=== PATIENT | male | born 1955 | race Caucasian/White ===

== ENCOUNTER → 2017-05-29 | Outpatient (CLI) | payer OTHER ==
--- NOTE | 2017-05-29 12:31 | P.STRESS ---
- Stress Test Note Stress Test Results/Findings: Exam Performed: stress test Exam Date: 05/29/17 Reason for Exam: HTN Height: 5 ft 10 in Weight: 92.079 kg Protocol: JOSEFA Stage: 2 Duration of Exercise: 4:20 Resting Heart Rate: 92 Resting Blood Pressure: 106/66 Maximum Achieved Heart Rate: 130 Maximum Achieved Blood Pressure: 193/70 85% PMHR: 136 100% PMHR: 160 METS: 6.2 Technologist Comment: Stress Test Results/Findings: Baseline EKG showed sinus rhythm with normal MO interval and QRS duration. EKG taken during and after the x-ray did not reveal any changes to good-sized ischemia. Patient did not express any chest pain. Final impression: #1. Negative stress test at about 81% of predicted heart rate #2. Patient did not express any chest pain. #3. Limited exercise capacity
--- NOTE | 2017-05-29 16:52 | EST ---
Stress Test Results/Findings: Exam Performed: stress test Exam Date: 05/29/17 Reason for Exam: HTN Height: 5 ft 10 in Weight: 92.079 kg Protocol: JOSEFA Stage: 2 Duration of Exercise: 4:20 Resting Heart Rate: 92 Resting Blood Pressure: 106/66 Maximum Achieved Heart Rate: 130 Maximum Achieved Blood Pressure: 193/70 85% PMHR: 136 100% PMHR: 160 METS: 6.2 Technologist Comment: Stress Test Results/Findings: Baseline EKG showed sinus rhythm with normal AL interval and QRS duration. EKG taken during and after the x-ray did not reveal any changes to good-sized ischemia. Patient did not express any chest pain. Final impression: #1. Negative stress test at about 81% of predicted heart rate #2. Patient did not express any chest pain. #3. Limited exercise capacity MTDD
--- NOTE | 2017-05-30 11:31 | ECHOF ---
Referral Reason:Hypertension I10 MEASUREMENTS -------- HEIGHT: 177.8 cm WEIGHT: 93.0 kg BP: RVIDd: 2.7 cm (< 3.3) IVSd: 1.0 cm (0.6 - 1.1) LVIDd: 4.4 cm (3.9 - 5.3) LVPWd: 1.1 cm (0.6 - 1.1) IVSs: 1.5 cm LVIDs: 3.2 cm LVPWs: 1.6 cm LA Diam: 3.0 cm (2.7 - 3.8) MV EXCURSION: 24.295 mm (> 18.000) MV EF SLOPE: 135 mm/s (70 - 150) EPSS: 2.0 cm MV E Yosef: 0.56 m/s MV DecT: 238 ms MV A Yosef: 0.79 m/s MV E/A Ratio: 0.71 RAP: 5.00 mmHg RVSP: 12.89 mmHg FINDINGS -------- Sinus rhythm. This was a technically adequate study. The left ventricular size is normal. Overall left ventricular systolic function is low-normal with, an EF between 50 - 55 %. The right ventricle is normal in size. The left atrial size is normal. The right atrial size is normal. The aortic valve is trileaflet, and appears structurally normal. No aortic stenosis or regurgitation. Mild mitral regurgitation is present. Mild tricuspid regurgitation present. There is no evidence of pulmonary hypertension. The right v entricular systolic pressure, as measured by Doppler, is 12.89mmHg. There is no pulmonic regurgitation present. The aortic root size is normal. There is no pericardial effusion. CONCLUSIONS -------- 1. The left ventricular size is normal. 2. Overall left ventricular systolic function is low-normal with, an EF between 50 - 55 %. 3. The right ventricle is normal in size. 4. The left atrial size is normal. 5. The aortic valve is trileaflet, and appears structurally normal. No aortic stenosis or regurgitati on. 6. Mild mitral regurgitation is present. 7. Mild tricuspid regurgitation present. 8. There is no evidence of pulmonary hypertension. 9. The right ventricular systolic pressure, as measured by Doppler, is 12.89mmHg. DOOR MANAGER: Elisa Gaines RDCS
== END | disposition home or self-care (01) ==
LOC: RADNMMAIN 11:11
PROVIDERS: ATTEND Family Medicine
DX: I10 Essential (primary) hypertension (principal); I08.1 Rheumatic disorders of both mitral and tricuspid valves
CPT/HCPCS: 93017; 93306

== ENCOUNTER 2018-04-30 10:09 | Day surgery (SDC) | payer BC, OTHER ==
[2018-04-26 14:26] VITALS: BMI 29.4
[~2018-04-30 10:09] MED LIST: LACTATED RINGERS 1,000 ML IV SCH; LIDOCAINE 1% 20 ML VIAL (10MG/ML) FOR IV START INTRADERMA PRN
[2018-04-30 10:39] VITALS: TEMP 97
[2018-04-30] MEDS ORDERED: LIDOCAINE 1% INJ 10MG/ML (20 ML MDV) ONE (11:35)
[2018-04-30] MEDS ORDERED: PROPOFOL 10 MG/ML 20 ML VIAL IV ONE (11:35)
[2018-04-30 12:30] VITALS: RESP 18
--- NOTE | 2018-04-30 12:32 | P.PCN ---
Date of Procedure: 04/30/18 Procedure(s) Performed: Procedure: Colonoscopy and polypectomy. Preoperative diagnosis: Rectal bleeding. Postoperative diagnosis: Multiple small polyps snared but no large polyps or cancer. Preparation: HalfLytely prep. Sedation: Was provided by anesthesia. Brief clinical history: The patient is a 62-year-old male who is scheduled for this evaluation because of couple episodes of rectal bleeding that occurs around 1 month ago. The patient had a prior colonoscopy around 5 years ago. This evaluation is to rule out neoplasia or other pathology. Procedure: With the patient on his left lateral decubitus and after informed consent and adequate sedation, the perianal area was inspected and it did not show any fissures or fistulas. There were no masses felt on digital rectal examination. The Olympus CFQ 160L video colonoscope was then inserted in the rectum in the usual fashion and advanced to the cecum. There were 3 small/ diminutive orifices noted, 1 in the right colon and 2 in the sigmoid that were snared and retrieved by suction but there were no large polyps or tumors. The mucosa appeared healthy. No obvious diverticular disease or bleeding. I retroflexed the endoscope in the rectum before the endoscope was withdrawn. Low -grade internal hemorrhoids were noted with no evidence of active bleeding at the time of this exam. The patient tolerated the procedure well. Plan: The patient was reassured. Discussed dietary measures and local care for hemorrhoids. He will follow-up with you as planned and I recommended repeat exam in 5 years.
[2018-04-30 13:14] VITALS: BP 147/87; PULSE 75
--- NOTE | 2018-05-02 13:15 | CDI ---
Outpatient Documentation Clarification Form Date: 05/02/18 CDS/Studio Data Analyst Name: Jina Ya Phone: If any questions, call Temitope Peck Typesetter Perforator Operator at [phone] Patient Name: Flex Morillo Admit Date: 04/30/18 Discharge Date: 04/30/18 ATTENTION: The [facility] Coding Staff appreciate your assistance in clarifying documentation. Please respond to the clarification below the line at the bottom and electronically sign. The [facility] Coding staff will review the response and follow-up if needed. Please note: Queries are made part of the Legal Health Record. If you have any questions, please contact the Typesetter Perforator Operator. Dear Dr. Gross, What is the cause of the rectal bleeding? Our coding resources state that when rectal bleeding is documented along with internal and/or external hemorrhoids, the physician must be queried to determine whether the rectal bleeding is secondary to the hemorrhoids, or incidental. Thank you for your kind consideration. MTDD
== END 2018-04-30 13:30 | disposition home or self-care (01) ==
LOC: ORWHC2ENDO 10:09
DX: D12.2 Benign neoplasm of ascending colon (principal); D12.5 Benign neoplasm of sigmoid colon; K62.5 Hemorrhage of anus and rectum; K64.8 Other hemorrhoids; J44.9 Chronic obstructive pulmonary disease, unspecified; E78.5 Hyperlipidemia, unspecified; N40.0 Benign prostatic hyperplasia without lower urinary tract symptoms; Z85.828 Personal history of other malignant neoplasm of skin; Z79.51 Long term (current) use of inhaled steroids; Z79.899 Other long term (current) drug therapy
CPT/HCPCS: 88305; 45385; J2001; J2704

== ENCOUNTER → 2018-10-29 | Outpatient (CLI) | payer BC ==
--- NOTE | 2018-10-30 07:24 | US ---
EXAMINATION TYPE: US thyroid st tissue head/neck DATE OF EXAM: 10/29/2018 COMPARISON: NONE CLINICAL HISTORY: E04.9 Enlarged Thyroid. Neck swelling GLAND SIZE: Right Lobe: 4.2 x 1.9 x 1.5 cm Overall Parenchyma: heterogenous Left Lobe: 4.0 x 1.8 x 1.3 cm Overall Parenchyma: heterogeneous Isthmus Thickness: 0.4 cm NODULES RIGHT: # of nodules measured on right: 0 LEFT: # of nodules measured on left: 0 ISTHMUS: # of nodules measured in the isthmus: 0 Bilateral neck scanned, no evidence of lymphadenopathy. IMPRESSION: No distinct abnormality appreciated.
== END | disposition home or self-care (01) ==
LOC: RADUSWWP 15:50
PROVIDERS: ATTEND Family Medicine
DX: E04.9 Nontoxic goiter, unspecified (principal)
CPT/HCPCS: 76536

== ENCOUNTER 2022-07-10 17:03 | Inpatient (IN) | payer BC, MEDICARE ==
[2022-07-10 17:15] LABS: Glucose,Whole Blood 154 mg/dL (70-110)
--- NOTE | 2022-07-10 17:32 | ED ---
Neuro HPI - General Chief Complaint: Neuro Symptoms/Deficit Stated Complaint: possible stroke Time Seen by Provider: 07/10/22 17:21 Source: patient, EMS Mode of arrival: EMS Limitations: altered mental status - History of Present Illness Is the patient presenting with stroke symptoms?: Yes Last Known Well Date: 07/10/22 Last Known Well Time: 16:00 -: hour(s) Initial Comments: This patient is 67-year-old man with history of COPD who presents with left- sided face and arm weakness. The patient reportedly developed the symptoms since he had been smoking marijuana with a friend around 4 PM. Patient reported having a similar episode about 5 days ago that resolved. Patient denies headache, change in sensation. Location: left face, left arm, left leg History of same: Yes Place: home Severity: moderate Quality: weak, numb Improves With: none Worsens With: none On Anticoagulants: No Context: sudden onset Associated Symptoms: shortness of breath Treatments Prior to Arrival: none - Related Data Home Medications: Home Medications Medication Instructions Recorded Confirmed Albuterol Inhaler [Ventolin Hfa 2 puff INHALATION RT-Q6H PRN 04/26/18 07/10/22 Inhaler] Budesonide [Pulmicort] 0.5 mg INHALATION RT-BID 04/26/18 07/10/22 Tamsulosin HCl [Flomax] 0.4 mg PO BID 04/26/18 07/10/22 Ipratropium-Albuterol Nebulize 3 ml INHALATION RT-QID PRN 07/10/22 07/10/22 [Duoneb 0.5 mg-3 mg/3 ml Soln] Montelukast Sodium [Singulair] 10 mg PO HS 07/10/22 07/10/22 Allergies/Adverse Reactions: Allergies Allergy/AdvReac Type Severity Reaction Status Date / Time No Known Allergies Allergy Verified 07/10/22 21:41 Review of Systems ROS Statement: Those systems with pertinent positive or pertinent negative responses have been documented in the HPI. ROS Other: All systems not noted in ROS Statement are negative. Constitutional: Denies: fever, chills Eyes: Denies: vision change Respiratory: Reports: dyspnea, wheezes. Denies: hemoptysis Cardiovascular: Denies: chest pain, edema, syncope Gastrointestinal: Denies: abdominal pain, vomiting, diarrhea Genitourinary: Denies: dysuria, hematuria Musculoskeletal: Denies: back pain Skin: Denies: rash Neurological: Reports: as per HPI, weakness (Left-sided). Denies: headache, numbness Hematological/Lymphatic: Denies: easy bleeding General Exam Limitations: no limitations General appearance: alert, in no apparent distress Head exam: Present: atraumatic, normocephalic Eye exam: Present: normal appearance, PERRL, EOMI. Absent: scleral icterus, conjunctival injection Neck exam: Present: normal inspection, full ROM Respiratory exam: Present: wheezes, prolonged expiratory. Absent: respiratory distress, rales, rhonchi, stridor, chest wall tenderness, accessory muscle use Cardiovascular Exam: Present: regular rate, normal rhythm, normal heart sounds. Absent: systolic murmur, diastolic murmur, rubs, gallop GI/Abdominal exam: Present: soft. Absent: distended, tenderness, guarding, rebound, rigid, mass Extremities exam: Present: normal inspection, normal capillary refill. Absent: pedal edema, calf tenderness Back exam: Present: normal inspection. Absent: CVA tenderness (R), CVA tenderness (L) Neurological exam: Present: alert, oriented X3, motor sensory deficit. Absent: CN II-XII intact Expanded Neurological exam: Present: protecting the airway Patient oriented to: Present: person, place, time Speech: Present: fluid speech Cranial nerves: EOM's Intact: Normal, Gag Reflex: Normal, Tongue Deviation: Norm al Cerebellar function: Finger to Nose: Normal Sensory exam: Upper Extremity Light Touch: Normal Motor strength exam: RUE: 5, LUE: 4, RLE: 5, LLE: 4 Eye Response: (4) open spontaneously Motor Response: (6) obeys commands Verbal Response: (5) oriented Skin exam: Present: warm, dry, intact, normal color. Absent: rash Stroke MDM - Lab Data Result diagrams: 07/10/22 17:16 07/10/22 17:16 Lab Results 07/10/22 07/10/22 07/10/22 Range/Units 17:14 17:16 17:16 WBC 7.9 (3.8-10.6) k/uL RBC 5.22 (4.30-5.90) m/uL Hgb 15.3 (13.0-17.5) gm/dL Hct 47.4 (39.0-53.0) % MCV 90.8 (80.0-100.0) fL MCH 29.3 (25.0-35.0) pg MCHC 32.2 (31.0-37.0) g/dL RDW 13.0 (11.5-15.5) % Plt Count 230 (150-450) k/uL MPV 8.6 Neutrophils % 79 % Lymphocytes % 14 % Monocytes % 4 % Eosinophils % 1 % Basophils % 1 % Neutrophils # 6.3 (1.3-7.7) k/uL Lymphocytes # 1.1 (1.0-4.8) k/uL Monocytes # 0.3 (0-1.0) k/uL Eosinophils # 0.1 (0-0.7) k/uL Basophils # 0.0 (0-0.2) k/uL Hypochromasia Slight PT 9.9 (9.0-12.0) sec INR 0.9 (<1.2) APTT 23.6 (22.0-30.0) sec VBG pH (7.31-7.41) VBG pCO2 (37-51) mmHg VBG HCO3 (24-28) mmol/L Sodium (137-145) mmol/L Potassium (3.5-5.1) mmol/L Chloride (98-107) mmol/L Carbon Dioxide (22-30) mmol/L Anion Gap mmol/L BUN (9-20) mg/dL Creatinine (0.66-1.25) mg/dL Est GFR (CKD-EPI)AfAm (>60 ml/min/1.73 sqM) Est GFR (CKD-EPI)NonAf (>60 ml/min/1.73 sqM) Glucose (74-99) mg/dL POC Glucose (mg/dL) 154 H (70-110) mg/dL POC Glu Twisting Frame Changer ID Ofelia Zhou Estimated Ave Glu mg/dL Hemoglobin A1c (0.0-6.0) % Calcium (8.4-10.2) mg/dL Total Bilirubin (0.2-1.3) mg/dL AST (17-59) U/L ALT (4-49) U/L Alkaline Phosphatase (38-126) U/L Troponin I (0.000-0.034) ng/mL Total Protein (6.3-8.2) g/dL Albumin (3.5-5.0) g/dL 07/10/22 07/10/22 07/10/22 Range/Units 17:16 17:16 17:16 WBC (3.8-10.6) k/uL RBC (4.30-5.90) m/uL Hgb (13.0-17.5) gm/dL Hct (39.0-53.0) % MCV (80.0-100.0) fL MCH (25.0-35.0) pg MCHC (31.0-37.0) g/dL RDW (11.5-15.5) % Plt Count (150-450) k/uL MPV Neutrophils % % Lymphocytes % % Monocytes % % Eosinophils % % Basophils % % Neutrophils # (1.3-7.7) k/uL Lymphocytes # (1.0-4.8) k/uL Monocytes # (0-1.0) k/uL Eosinophils # (0-0.7) k/uL Basophils # (0-0.2) k/uL Hypochromasia PT (9.0-12.0) sec INR (<1.2) APTT (22.0-30.0) sec VBG pH (7.31-7.41) VBG pCO2 (37-51) mmHg VBG HCO3 (24-28) mmol/L Sodium 141 (137-145) mmol/L Potassium 4.4 (3.5-5.1) mmol/L Chloride 107 (98-107) mmol/L Carbon Dioxide 26 (22-30) mmol/L Anion Gap 8 mmol/L BUN 16 (9-20) mg/dL Creatinine 1.08 (0.66-1.25) mg/dL Est GFR (CKD-EPI)AfAm 83 (>60 ml/min/1.73 sqM) Est GFR (CKD-EPI)NonAf 72 (>60 ml/min/1.73 sqM) Glucose 168 H (74-99) mg/dL POC Glucose (mg/dL) (70-110) mg/dL POC Glu Twisting Frame Changer ID Estimated Ave Glu mg/dL 120 Hemoglobin A1c 5.8 (0.0-6.0) % Calcium 9.0 (8.4-10.2) mg/dL Total Bilirubin 0.4 (0.2-1.3) mg/dL AST 21 (17-59) U/L ALT 18 (4-49) U/L Alkaline Phosphatase 133 H (38-126) U/L Troponin I <0.012 (0.000-0.034) ng/mL Total Protein 6.4 (6.3-8.2) g/dL Albumin 3.8 (3.5-5.0) g/dL 07/10/22 Range/Units 20:25 WBC (3.8-10.6) k/uL RBC (4.30-5.90) m/uL Hgb (13.0-17.5) gm/dL Hct (39.0-53.0) % MCV (80.0-100.0) fL MCH (25.0-35.0) pg MCHC (31.0-37.0) g/dL RDW (11.5-15.5) % Plt Count (150-450) k/uL MPV Neutrophils % % Lymphocytes % % Monocytes % % Eosinophils % % Basophils % % Neutrophils # (1.3-7.7) k/uL Lymphocytes # (1.0-4.8) k/uL Monocytes # (0-1.0) k/uL Eosinophils # (0-0.7) k/uL Basophils # (0-0.2) k/uL Hypochromasia PT (9.0-12.0) sec INR (<1.2) APTT (22.0-30.0) sec VBG pH 7.38 (7.31-7.41) VBG pCO2 46 (37-51) mmHg VBG HCO3 27 (24-28) mmol/L Sodium (137-145) mmol/L Potassium (3.5-5.1) mmol/L Chloride (98-107) mmol/L Carbon Dioxide (22-30) mmol/L Anion Gap mmol/L BUN (9-20) mg/dL Creatinine (0.66-1.25) mg/dL Est GFR (CKD-EPI)AfAm (>60 ml/min/1.73 sqM) Est GFR (CKD-EPI)NonAf (>60 ml/min/1.73 sqM) Glucose (74-99) mg/dL POC Glucose (mg/dL) (70-110) mg/dL POC Glu Twisting Frame Changer ID Estimated Ave Glu mg/dL Hemoglobin A1c (0.0-6.0) % Calcium (8.4-10.2) mg/dL Total Bilirubin (0.2-1.3) mg/dL AST (17-59) U/L ALT (4-49) U/L Alkaline Phosphatase (38-126) U/L Troponin I (0.000-0.034) ng/mL Total Protein (6.3-8.2) g/dL Albumin (3.5-5.0) g/dL - NIH Stroke Scale 1a. Level of Consciousness: (0) alert 1b. LOC Questions: (0) answers correctly 1c. LOC Commands: (0) performs tasks correctly 2. Best Gaze: (0) normal 3. Visual: (0) no visual loss 4. Facial Palsy: (1) minor paralysis 5a. Motor Arm Left: (1) drift 5b. Motor Arm Right: (0) no drift 6a. Motor Leg Left: (1) drift 6b. Motor Leg Right: (0) no drift 7. Limb Ataxia: (0) absent 8. Sensory: (0) normal 9. Best Language: (0) no aphasia 10. Dysarthria: (0) normal 11. Extinction/Inattention: (0) no abnormality - Medical Decision Making Patient is 67-year-old man here for left-sided weakness face arm and leg. Case is discussed with stroke team. Patient worked up not revealing acute stroke. 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 The patient did have marked improvement of his symptoms and therefore TPA is not given. Patient be admitted to have further neurology care and vascular surgery consult. Was pt. sent in by a medical professional or institution? @ -no Did you speak to anyone other than the patient for history? @ -[EMS, Did you review nursing and triage notes? @ -[agree Were old charts reviewed? @ -[no] Differential Diagnosis? @ -Differential Weakness: Hypoglycemia, shock, sepsis, hyponatremia, anemia, infection, AK, ETOH, adverse medicine reaction, overdose, stroke, this is not meant to be an all-inclusive list. EKG interpreted by me (3pts min.)? @ -[See chart X-rays interpreted by me (1pt min.)? @ -[See chart CT interpreted by me (1pt min.)? @ -[CT brain interpreted by myself as showing acute hemorrhagic stroke] U/S interpreted by me (1pt. min.)? @ -[none] What testing was considered but not performed? (CT, X-rays, U/S, labs)? Why? @ [CT, X-rays, U/S, labs? Why?] What meds were considered but not given? Why? @ -[TPA administration considered in conjunction with stroke team, but patient had rapid improvement in symptoms Did you discuss the management of the patient with other professionals? @ -[Stroke team physician and admitting physician Did you reconcile home meds? @ -[Yes Was smoking cessation discussed for >3mins.? @ -[Yes Was critical care preformed (if so, how long)? @ -[Yes35 minutes Were there social determinants of health that impacted care today? How? (Homelessness, low income, unemployed, alcoholism, drug addiction, tr ansportation, low edu. Level, literacy, decrease access to med. care, [facility], rehab)? @ -[no Was there de-escalation of care discussed even if they declined? (Discuss DNR or withdrawal of care, Hospice)? @ -[no What co-morbidities impacted this encounter? (DM, HTN, Smoking, COPD, CAD, Cancer, CVA, Hep., AIDS, mental health diagnosis, sleep apnea, morbid obesity)? @ -[COPD Was patient admitted / discharged? @ -[Admitted Undiagnosed new problem with uncertain prognosis? @ -[none] Drug Therapy requiring intensive monitoring for toxicity (Heparin, Nitro, Insulin, Cardizem)? @ -[none] Were any procedures done? @ -[none] Diagnosis/symptom? @ -[1.Acute ischemic stroke versus TIA 2. COPD exacerbation Acute, or Chronic, or Acute on Chronic? @ -[Both acute conditions Uncomplicated (without systemic symptoms) or Complicated (systemic symptoms)? @ -[Uncomplicated Side effects of treatment? @ -[none] Exacerbation, Progression, or Severe Exacerbation] @ -[Exacerbation Poses a threat to life or bodily function? @ -[Yes - Radiology Data Radiology results: image reviewed Chest x-ray interpreted by myself as not showing acute infiltrate - EKG Data -: EKG Interpreted by Me EKG shows normal: sinus rhythm (Rate 86 bpm), axis (Normal), intervals (Normal), QRS complexes (Incomplete right bundle branch block), ST-T waves (Normal) Rate: normal (Rate 86 bpm) Past Medical History Past Medical History: Cancer, COPD, Hyperlipidemia Additional Past Medical History / Comment(s): Skin CA History of Any Multi-Drug Resistant Organisms: None Reported Past Surgical History: Hernia Repair, Orthopedic Surgery Additional Past Surgical History / Comment(s): Ankle surgery; 2 fingertips removed r/t accident Past Anesthesia/Blood Transfusion Reactions: No Reported Reaction Past Psychological History: No Psychological Hx Reported Smoking Status: Current every day smoker Past Alcohol Use History: None Reported Past Drug Use History: Marijuana - Past Family History Mother Family Medical History: No Reported History Course Vital Signs 07/10/22 07/10/22 07/10/22 17:06 17:15 17:45 Temperature 97.4 F L Pulse Rate 87 88 88 Pulse Rate [ Pulse Oximetery ] Respiratory 20 14 13 Rate Blood Pressure 119/92 112/65 128/78 Blood Pressure [Left Arm] O2 Sat by Pulse 96 96 96 Oximetry Fraction of Inspired Oxygen (FIO2) 07/10/22 07/10/22 07/10/22 19:12 19:52 20:05 Temperature Pulse Rate 84 90 86 Pulse Rate [ Pulse Oximetery ] Respiratory 13 Rate Blood Pressure 127/67 Blood Pressure [Left Arm] O2 Sat by Pulse 99 Oximetry Fraction of Inspired Oxygen (FIO2) 07/10/22 07/10/22 07/10/22 21:31 23:41 23:42 Temperature Pulse Rate 87 105 H 100 Pulse Rate [ Pulse Oximetery ] Respiratory 20 26 H Rate Blood Pressure 139/80 Blood Pressure [Left Arm] O2 Sat by Pulse 97 97 98 Oximetry Fraction of Inspired Oxygen (FIO2) 07/10/22 07/11/22 07/11/22 23:50 00:01 01:11 Temperature Pulse Rate 102 H 95 80 Pulse Rate [ Pulse Oximetery ] Respiratory 26 H 16 Rate Blood Pressure 133/93 131/71 Blood Pressure [Left Arm] O2 Sat by Pulse 95 94 L Oximetry Fraction of 35 Inspired Oxygen (FIO2) 07/11/22 07/11/22 07/11/22 02:56 03:10 03:53 Temperature Pulse Rate 81 75 78 Pulse Rate [ Pulse Oximetery ] Respiratory 18 Rate Blood Pressure 134/67 Blood Pressure [Left Arm] O2 Sat by Pulse 99 Oximetry Fraction of 35 Inspired Oxygen (FIO2) 07/11/22 07/11/22 07/11/22 06:01 07:00 07:04 Temperature Pulse Rate 77 72 73 Pulse Rate [ Pulse Oximetery ] Respiratory 18 18 18 Rate Blood Pressure 163/85 145/84 Blood Pressure [Left Arm] O2 Sat by Pulse 97 99 Oximetry Fraction of 35 Inspired Oxygen (FIO2) 07/11/22 07/11/22 07/11/22 07:15 08:00 11:33 Temperature 97.3 F L Pulse Rate 73 88 Pulse Rate [ 100 Pulse Oximetery ] Respiratory 18 20 22 Rate Blood Pressure Blood Pressure 115/98 [Left Arm] O2 Sat by Pulse 98 Oximetry Fraction of Inspired Oxygen (FIO2) - Reevaluation(s) Reevaluation #1: 07/10/22 17:43 Case is discussed with , his recommendation is that TPA not be given at this time, pending the CT result. He does recommend IV fluids, aspirin, and will discuss again following CT. Disposition Clinical Impression: Transient cerebral ischemia, COPD with exacerbation Disposition: ADMITTED IP TO THIS [facility] Condition: Undetermined Is patient prescribed a controlled substance at d/c from ED?: No
[2022-07-10] MEDS ORDERED: SODIUM CHLORIDE 0.9% 1,000 ML IV ONE (17:42)
--- NOTE | 2022-07-10 17:52 | CT ---
EXAMINATION TYPE: CT brain wo con for TPA DATE OF EXAM: 07/10/2022 COMPARISON: None HISTORY: code altephase Neuro deficit, acute, stroke suspected CT DLP: 1162.6 mGycm Automated exposure control for dose reduction was used. Images obtained without contrast. Ventricles are normal size. There is no mass effect or midline shift. No sign of intracranial hemorrh age. Calvarium is intact. There is normal aeration of the mastoid sinuses. IMPRESSION: Negative unenhanced head CT scan.
[2022-07-10 17:53] LABS: Basophils % (A) 1 %; Eosinophils # (A) 0.1 k/uL (0-0.7); Eosinophils % (A) 1 %; HCT 47.4 % (39.0-53.0); HGB 15.3 gm/dL (13.0-17.5); Hypochromasia Slight; Lymphocytes # (A) 1.1 k/uL (1.0-4.8); Lymphocytes % (A) 14 %; MCH 29.3 pg (25.0-35.0); MCHC 32.2 g/dL (31.0-37.0); MCV 90.8 fL (80.0-100.0); Mean Platelet Volume 8.6; Monocytes # (A) 0.3 k/uL (0-1.0); Monocytes % (A) 4 %; Neutrophils # (A) 6.3 k/uL (1.3-7.7); Neutrophils % (A) 79 %; Platelet Count 230 k/uL (150-450); RBC 5.22 m/uL (4.30-5.90); WBC 7.9 k/uL (3.8-10.6)
[2022-07-10 18:09] LABS: INR 0.9 (<1.2); Partial Thromboplastin Time 23.6 sec (22.0-30.0); Prothrombin Time 9.9 sec (9.0-12.0)
[2022-07-10 18:15] LABS: Albumin 3.8 g/dL (3.5-5.0); Potassium 4.4 mmol/L (3.5-5.1); Total Bilirubin 0.4 mg/dL (0.2-1.3); Total Protein 6.4 g/dL (6.3-8.2)
--- NOTE | 2022-07-10 18:21 | CT ---
EXAMINATION TYPE: CT angio head neck DATE OF EXAM: 07/10/2022 COMPARISON: None HISTORY: Neuro deficit, acute, stroke suspected CT DLP: 652 mGycm Automated exposure control for dose reduction was used. CONTRAST: Performed with IV Contrast, patient injected with 65 mL of Isovue 370. Images obtained from the aortic arch to the vertex of the brain with the IV contrast. There are Three -D postprocessed images. There is atheromatous change in the aortic arch. No aneurysm or dissection. There is arterial flow in both subclavian arteries. There is arterial flow in the common internal and external carotid arterie s bilaterally. There is significant plaque at the right carotid artery bifurcation and stenosis of th e origin of the right internal carotid artery 80%. There is thrombosis of the entire left internal ca rotid artery. There is arterial flow in both vertebral arteries. There is arterial flow in the verteb robasilar artery system. No evidence of carotid or vertebral artery aneurysm. There is arterial flow in the anterior middle and posterior cerebral arteries bilaterally. The left m iddle cerebral artery and left anterior cerebral artery appear to fill entirely through the anterior communicating artery. There is no definite flow in the left posterior communicating artery. No eviden ce of intracranial aneurysm or neovascularity. No mass effect. There is normal enhancement of the hudson ous sinuses. No stenosis seen of the anterior middle and posterior cerebral arteries. 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 There is approximate 80% stenosis of the origin of the right internal carotid artery.
--- NOTE | 2022-07-10 18:23 | XR ---
EXAMINATION TYPE: XR chest 2V DATE OF EXAM: 07/10/2022 COMPARISON: NONE HISTORY: Altered mental status TECHNIQUE: 2 views FINDINGS: Heart and mediastinum are normal. Lungs are clear. Diaphragm is normal. Bony thorax is inta ct. There are chest leads. IMPRESSION: Normal chest.
[2022-07-10] MEDS ORDERED: IPRATROPIUM-ALBUTEROL 3 ML NEB INHALATION STA (19:32)
[2022-07-10] MEDS ORDERED: ASPIRIN 81 MG PO STA (20:06)
[2022-07-10] MEDS ORDERED: TICAGRELOR 90 MG TAB PO STA (20:48)
[2022-07-10] MEDS: FAMOTIDINE 20 MG/2 ML VIAL IV SCH (21:05)
[2022-07-10 21:07] LABS: VBG PH 7.38 (7.31-7.41)
[2022-07-10] MEDS ORDERED: ALBUTEROL NEBULIZED 2.5 MG/3 ML INHALATION PRN (22:50)
[2022-07-10] MEDS: NICOTINE 14MG/24HR PATCH TRANSDERM SCH (22:54)
[2022-07-10] MEDS: IPRATROPIUM-ALBUTEROL 3 ML NEB INHALATION PRN (23:41)
[2022-07-11] MEDS ORDERED: NITROGLYCERIN OINT 1 INCH/GM PACKET TOPICAL STA (00:02)
[2022-07-11] MEDS ORDERED: MORPHINE SULFATE 4 MG/ML SYRINGE IV STA (00:02)
[2022-07-11] MEDS ORDERED: predniSONE 20 MG TAB PO SCH (01:30)
[2022-07-11] MEDS: IPRATROPIUM-ALBUTEROL 3 ML NEB INHALATION PRN ×3 (07:03→15:53)
[2022-07-11] MEDS ORDERED: BUDESONIDE 0.5 MG/2 ML NEBU INHALATION SCH (08:00)
[2022-07-11] MEDS: FAMOTIDINE 20 MG/2 ML VIAL IV SCH (08:55)
[2022-07-11] MEDS: NICOTINE 14MG/24HR PATCH TRANSDERM SCH (08:56)
[2022-07-11] MEDS ORDERED: ATORVASTATIN 40 MG TAB PO SCH (09:00)
[2022-07-11] MEDS ORDERED: TAMSULOSIN 0.4 MG CAP.ER.24H PO SCH (09:00)
[2022-07-11] MEDS ORDERED: ASPIRIN 81 MG PO SCH (09:00)
[2022-07-11] MEDS ORDERED: TICAGRELOR 90 MG TAB PO SCH ×2 (09:00→21:00)
[2022-07-11 11:42] VITALS: RESP 18
[2022-07-11 11:50] LABS: Chol/HDL Ratio 5.66 Ratio; LDL Cholesterol,Calculated 154.6 mg/dL (0.0-131.0)
--- NOTE | 2022-07-11 12:07 | P.GSCN ---
History of Present Illness Consult date: 07/11/22 Reason for Consult: Under 1 called left carotid occlusion, right ICA stenosis Carotid stenosis Requesting physician: Mk Dolan History of present illness: This a 67-year-old male who presented to the emergency department yesterday evening with complaints of left-sided facial numbness, drooping as well as left upper extremity weakness. His past medical history includes COPD, he is a current every day smoker, and hyperlipidemia.Patient states he was at a friend's house and they were smoking marijuana and he started feeling like his whole body was weak/numb. He states he had similar episode a week ago when he was at his friend's house at that time states that symptoms seemed to resolve that he went home and felt better. Yesterday however patient became very nervous and was concerned for stroke so he came to the emergency department. He had a CT of the brain that showed no acute changes. He also underwent a CT angiogram head and neck there is thrombosis of the entire left internal carotid artery. There is approximate 80% stenosis of the origin of the right internal carotid artery. Patient seen and examined in the ICU. He is alert and oriented 3. He denies any focal deficits at this time. He denies any shortness of breath, chest pain, abdominal pain, nausea or vomiting. Denies any recent fevers or chills. He denied any visual changes or speech disturbances during his episode yesterday. He was started on aspirin, atorvastatin 40 mg daily and Brilinta 90 mg daily. Review of Systems A 14 point review systems was completed all pertinent positives and negatives as stated in the HPI. Past Medical History Past Medical History: Cancer, COPD, Hyperlipidemia Additional Past Medical History / Comment(s): Skin CA History of Any Multi-Drug Resistant Organisms: None Reported Past Surgical History: Hernia Repair, Orthopedic Surgery Additional Past Surgical History / Comment(s): Ankle surgery; 2 fingertips removed r/t accident Past Anesthesia/Blood Transfusion Reactions: No Reported Reaction Past Psychological History: No Psychological Hx Reported Smoking Status: Current every day smoker Past Alcohol Use History: None Reported Past Drug Use History: Marijuana - Past Family History Mother Family Medical History: No Reported History Medications and Allergies Home Medications Medication Instructions Recorded Confirmed Type Albuterol Inhaler [Ventolin Hfa 2 puff INHALATION RT-Q6H PRN 04/26/18 07/10/22 History Inhaler] Budesonide [Pulmicort] 0.5 mg INHALATION RT-BID 04/26/18 07/10/22 History Tamsulosin HCl [Flomax] 0.4 mg PO BID 04/26/18 07/10/22 History Ipratropium-Albuterol Nebulize 3 ml INHALATION RT-QID PRN 07/10/22 07/10/22 History [Duoneb 0.5 mg-3 mg/3 ml Soln] Montelukast Sodium [Singulair] 10 mg PO HS 07/10/22 07/10/22 History Allergies Allergy/AdvReac Type Severity Reaction Status Date / Time No Known Allergies Allergy Verified 07/10/22 21:41 Surgical - Exam Vital Signs Temp Pulse Resp BP Pulse Ox 97.4 F L 87 20 119/92 96 07/10/22 17:06 07/10/22 17:06 07/10/22 17:06 07/10/22 17:06 07/10/22 17:06 General appearance: The patient is alert, oriented, appears in no acute distress. HET: Head is normocephalic and atraumatic. Pupils are equal and reactive. Neck: Supple without lymphadenopathy. Trachea midline. Heart: Regular. Lungs: Equal expansion, normal respiratory effort. Abdomen: Soft, nontender, nondistended. Extremities: Normal skin color and turgor. No cyanosis, rash, ulceration, clubbing, or edema. Palpable bilateral dorsalis pedis pulses, PT pulses weak Neurological: Alert and oriented x3. No focal deficits. Strength and sensation are grossly intact. Results - Labs 07/10/22 17:16 07/10/22 17:16 Abnormal Lab Results - Last 24 Hours (Table) 07/10/22 07/10/22 Range/Units 17:14 17:16 Glucose 168 H (74-99) mg/dL POC Glucose (mg/dL) 154 H (70-110) mg/dL Alkaline Phosphatase 133 H (38-126) U/L Diabetes panel 07/10/22 Range/Units 17:16 Sodium 141 (137-145) mmol/L Potassium 4.4 (3.5-5.1) mmol/L Chloride 107 (98-107) mmol/L Carbon Dioxide 26 (22-30) mmol/L BUN 16 (9-20) mg/dL Creatinine 1.08 (0.66-1.25) mg/dL Glucose 168 H (74-99) mg/dL Calcium 9.0 (8.4-10.2) mg/dL AST 21 (17-59) U/L ALT 18 (4-49) U/L Alkaline Phosphatase 133 H (38-126) U/L Total Protein 6.4 (6.3-8.2) g/dL Albumin 3.8 (3.5-5.0) g/dL Calcium panel 07/10/22 Range/Units 17:16 Calcium 9.0 (8.4-10.2) mg/dL Albumin 3.8 (3.5-5.0) g/dL Pituitary panel 07/10/22 Range/Units 17:16 Sodium 141 (137-145) mmol/L Potassium 4.4 (3.5-5.1) mmol/L Chloride 107 (98-107) mmol/L Carbon Dioxide 26 (22-30) mmol/L BUN 16 (9-20) mg/dL Creatinine 1.08 (0.66-1.25) mg/dL Glucose 168 H (74-99) mg/dL Calcium 9.0 (8.4-10.2) mg/dL Adrenal panel 07/10/22 Range/Units 17:16 Sodium 141 (137-145) mmol/L Potassium 4.4 (3.5-5.1) mmol/L Chloride 107 (98-107) mmol/L Carbon Dioxide 26 (22-30) mmol/L BUN 16 (9-20) mg/dL Creatinine 1.08 (0.66-1.25) mg/dL Glucose 168 H (74-99) mg/dL Calcium 9.0 (8.4-10.2) mg/dL Total Bilirubin 0.4 (0.2-1.3) mg/dL AST 21 (17-59) U/L ALT 18 (4-49) U/L Alkaline Phosphatase 133 H (38-126) U/L Total Protein 6.4 (6.3-8.2) g/dL Albumin 3.8 (3.5-5.0) g/dL Assessment and Plan Assessment: 1. Severe Right internal carotid artery stenosis, 80% per CT angiogram 2. Left ICA occlusion 3. Left upper extremity weakness and facial numbness, now resolved 4. History hyperlipidemia 5. Nicotine dependence Plan: 1. Continue symptomatic and supportive care next line 2. Patient may have heart healthy diet 3. Await recommendations from neurology 4. Agree with aspirin, [place] and statin 5. Discuss with patient CT angiogram findings, recommend outpatient follow-up and scheduled surgical intervention for right ICA stenosis 6. Tobacco cessation Thank you for this consultation, we will continue to follow. The impression and plan of care has been dictated as directed. I performed a history and examination of this patient, discussed the same with the dictator. I agree with the dictator's note ,documented as a scribe. Any additional findings or plans will be noted.
--- NOTE | 2022-07-11 12:58 | P.CNNES ---
History of Present Illness Consult date: 07/11/22 Requesting physician: Mk Dolan Reason for Consult: TIA versus ischemic stroke History of Present Illness: Patient is a 67-year-old right-handed male came to the hospital by ambulance yesterday at 5:03 PM for possible TIA. Patient states that he woke up yesterday at 12:30 PM and was feeling fine. He did not eat anything, went to meet his jed. He was feeling fine, walked and talked well. At around 3-4 p.m., he noticed that he was not able to sit up, and he was leaning, falling to the right side. He could not get up, could not sit up straight. He had not eaten whole day, therefore he drank some pop, and ate peanut butter, but did not feel better. He also noticed numbness of the left perioral region, and also weakness and numbness of the left hand. He tried to reach for the pop, could not use his left hand. Patient states the left perioral numbness lasted for about few minutes, but the left hand symptoms lasted for about half an hour. Patient's jed called the ambulance. Patient himself denies any facial droop, slurred speech or problem with the vision. He says that he does not remember. As per EMS flow sheet, when they arrived, found patient sitting in a chair alert and oriented 4. Patient stated that he was with his friends and they noticed patient started to have droop on his face along with diaphoresis and confused speech. They gave patient some glucose tablets thinking it was hypoglycemia although no history of diabetes. Symptoms went away by the time EMS arrived. Patient apparently had similar symptoms the day prior and he laid down and the symptoms went away. Patient denied any chest pain or shortness of breath. When patient stood up, he was displaying ataxia and was unsteady on his feet. This was not normal for him. Patient's vitals at the scene was blood pressure 110/60, pulse rate 85, respiration 18, saturation 94% and blood sugar 206. Vital signs on arrival blood pressure 119/92, pulse [address] head negative for any acute process. Chest x-ray is normal, EKG shows sinus rhythm. Patient's blood test shows normal CBC, PT/PTT, normal Chem-7, hepatic panel and troponins are negative. Stroke code was activated in the ED. ED staf f discuss case with stroke neurologist, and it appears patient was not a candidate for TPA, as symptoms were rapidly improving. Patient's home medications include Pulmicort, albuterol, Flomax, Singulair. Does not take any antiplatelet medication. Patient was given aspirin 324 mg in the ER and started on 81 mg daily. Also given Brilinta 90 mg status with once daily thereafter. Patient has smoked between half to 1 pack per day for 30 years. Still smokes. He did alcohol longtime ago, but not a heavy drinker. He was occasionally smokes marijuana, and did smoke marijuana yesterday before the onset of symptoms. He states he has borderline diabetes. 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 Review of Systems Constitutional: Denies chills, Denies fever Eyes: denies blurred vision, denies pain Ears: deny: decreased hearing Ears, nose, mouth and throat: Denies headache, Denies sore throat Cardiovascular: Denies chest pain, Denies shortness of breath Respiratory: Denies cough Gastrointestinal: Denies abdominal pain, Denies diarrhea, Denies nausea, Denies vomiting Musculoskeletal: Denies myalgias Integumentary: Denies pruritus, Denies rash Neurological: Reports as per HPI Psychiatric: Denies anxiety, Denies depression Endocrine: Denies fatigue, Denies weight change Past Medical History Past Medical History: Cancer, COPD, Hyperlipidemia Additional Past Medical History / Comment(s): Skin CA History of Any Multi-Drug Resistant Organisms: None Reported Past Surgical History: Hernia Repair, Orthopedic Surgery Additional Past Surgical History / Comment(s): Ankle surgery; 2 fingertips removed r/t accident Past Anesthesia/Blood Transfusion Reactions: No Reported Reaction Past Psychological History: No Psychological Hx Reported Smoking Status: Current every day smoker Past Alcohol Use History: None Reported Past Drug Use History: Marijuana - Past Family History Mother Family Medical History: No Reported History Medications and Allergies Home Medications Medication Instructions Recorded Confirmed Type Albuterol Inhaler [Ventolin Hfa 2 puff INHALATION RT-Q6H PRN 04/26/18 07/10/22 History Inhaler] Budesonide [Pulmicort] 0.5 mg INHALATION RT-BID 04/26/18 07/10/22 History Tamsulosin HCl [Flomax] 0.4 mg PO BID 04/26/18 07/10/22 History Ipratropium-Albuterol Nebulize 3 ml INHALATION RT-QID PRN 07/10/22 07/10/22 History [Duoneb 0.5 mg-3 mg/3 ml Soln] Montelukast Sodium [Singulair] 10 mg PO HS 07/10/22 07/10/22 History Allergies Allergy/AdvReac Type Severity Reaction Status Date / Time No Known Allergies Allergy Verified 07/10/22 21:41 Physical Examination - Vital Signs Vital Signs: Vital Signs Temp Pulse Pulse Resp BP BP Pulse Ox 07/11/22 08:00 97.3 F L 100 20 115/98 98 07/11/22 07:15 73 18 07/11/22 07:04 73 18 07/11/22 07:00 72 18 145/84 99 07/11/22 06:01 77 18 163/85 97 07/11/22 03:53 78 18 134/67 99 07/11/22 03:10 75 07/11/22 02:56 81 07/11/22 01:11 80 16 131/71 94 L 07/11/22 00:01 95 26 H 133/93 95 07/10/22 23:50 102 H 07/10/22 23:42 100 26 H 98 07/10/22 23:41 105 H 97 07/10/22 21:31 87 20 139/80 97 07/10/22 20:05 86 07/10/22 19:52 90 07/10/22 19:12 84 13 127/67 99 07/10/22 17:45 88 13 128/78 96 07/10/22 17:15 88 14 112/65 96 07/10/22 17:06 97.4 F L 87 20 119/92 96 FiO2 07/11/22 08:00 07/11/22 07:15 07/11/22 07:04 35 07/11/22 07:00 07/11/22 06:01 07/11/22 03:53 07/11/22 03:10 07/11/22 02:56 35 07/11/22 01:11 07/11/22 00:01 07/10/22 23:50 35 07/10/22 23:42 07/10/22 23:41 07/10/22 21:31 07/10/22 20:05 07/10/22 19:52 07/10/22 19:12 07/10/22 17:45 07/10/22 17:15 07/10/22 17:06 Intake and Output 07/10/22 07/11/22 07/11/22 22:59 06:59 14:59 Intake Total 120 Balance 120 Intake: Oral 120 Other: Weight 99.79 kg Patient is an elderly male, in no acute distress. Patient is alert awake oriented to time place and person. Speech and language functions are normal. Patient can name and repeat very well. No aphasia or dysarthria. Attention, concentration and fund of knowledge is adequate. On cranial nerve examination, pupils are equal, round and reacting to light, visual leung are full on confrontation, with no neglect on double simultaneous stimulation. Extraocular muscles are intact with no nystagmus. Face is symmetric, tongue protrudes to the midline. Palatal elevation and sensation normal, hearing and shoulder shrug normal, facial sensation normal. On muscle strength testing, there is no pronator drift and the strength is normal in arms and legs distally and proximally. Deep tendon reflexes are symmetric 1+ to 2 in bilateral upper limbs, 1+ to 2 at both knees, 1+ ankles and plantars are somewhat up at baseline. Questionable up. Sensory to touch is equal with no neglect on double simultaneous stimulation. Cerebellar function showed no ataxia for [id number] testing. No dysdiadochokinesia. No ataxia for [id number] testing on either side. Tone and bulk of muscles normal. Gait deferred.. On general examination, there is no carotid bruit or murmur, S1-S2 audible. Chest is clear on consultation. Abdomen is soft nontender. No organomegaly, bowel sounds present. Mild peripheral edema. Results - Laboratory Findings CBC and BMP: 07/10/22 17:16 07/10/22 17:16 Abnormal Lab Findings: Abnormal Labs 07/10/22 07/10/22 17:14 17:16 Glucose 168 H POC Glucose (mg/dL) 154 H Alkaline Phosphatase 133 H Assessment and Plan Assessment: * Stroke/TIA, manifesting with gait ataxia, tending to fall to the right, but had focal symptoms involved the left facial brachial region. Symptoms resolved, current NIH stroke scale 0. * Complete left ICA occlusion * Right ICA stenosis 80%. * Hypertension * Tobacco use Plan: * MRI of brain evaluate for an acute stroke. * CTA of the neck showed thrombosis of the entire left ICA. There is approximate 80% stenosis of the origin of right ICA. The right ICA stenosis is probably symptomatic, as patient has symptoms mainly on the left side. * Vascular surgery input appreciated. Patient probably a candidate for right CEA in the very near future. * Agree with DAP with Aspirin 81 mg and Brilinta 90 mg twice a day. * Fasting lipid panel with cholesterol 213, LDL 154, HDL 37 triglycerides 104. Start high-dose statins with Lipitor 80 mg daily. * Hemoglobin A1c. * 2-D echo rule out any embolic source. * Permissive hypertension. * Telemetry monitoring * Recommend complete tobacco cessation. * Neurology will follow. Thank you for the consult.
[2022-07-11] MEDS ORDERED: ATORVASTATIN 80 MG TAB PO SCH ×3 (13:15→21:00)
[2022-07-11] MEDS ORDERED: LORazepam 2 MG/ML INJ IV STA (14:04)
[2022-07-11 14:40] VITALS: TEMP 97.7
--- NOTE | 2022-07-11 16:04 | MR ---
"EXAMINATION TYPE: MR brain wo con DATE OF EXAM: 07/11/2022 COMPARISON: CT brain from 1 day earlier HISTORY: Neuro deficit, suspected stroke/TIA. TECHNIQUE: Multiplanar, multisequence imaging of the brain and brainstem is performed without IV cont rast. FINDINGS: Diffusion weighted images demonstrate scattered small foci of increased signal subcortical level on d iffusion weighted images with diminished signal on ADC mapping showing areas of T2 hyperintensity gre ater in the high right brain versus opposite left side where there is single area of involvement. The re is more prominent involvement in the right occipital lobe noted. There is background mild ventricular and sulcal prominence. Background small scattered foci of T2 hyp erintensity. Midline structures demonstrate normal morphology. The craniocervical junction appears within normal limits. Normal vascular flow voids are present. The visualized sinuses are clear and the globes are i ntact. Increased fluid signal right mastoid air cells is redemonstrated. IMPRESSION: 1. Bilateral multifocal areas of acute infarct more prominent and numerous in the right brain versus left brain and more prominent over the right occipital lobe and parietal occipital region. 2. Background mild diffuse age-related cerebral atrophy and chronic small vessel ischemic changes are redemonstrated. A Yellow level critical message alert has been initiated for Isra Mccord DO via the [employer] | Critical Results System on 07/11/2022 4:02 PM. This message alert has been sent to Isra Mccord DO via the preferences provided by the clinician for the receipt of Radiology Critical Findings. Message ID [id number]."
[2022-07-11] MEDS ORDERED: PANTOPRAZOLE 40 MG/10 ML VIAL IVP SCH (16:30)
--- NOTE | 2022-07-11 17:06 | US ---
EXAMINATION TYPE: US carotid duplex BILAT DATE OF EXAM: 07/11/2022 COMPARISON: NONE CLINICAL HISTORY: evaluate carotid stenosis. Abnormal CTA TECHNIQUE: Carotid duplex ultrasound examination. Indirect Doppler criteria was utilized. FINDINGS: EXAM MEASUREMENTS: RIGHT: Peak Systolic Velocity (PSV) cm/sec ----- Right CCA: 73.5 ----- Right ICA: 194 ----- Right ECA: 150 ICA/CCA ratio: 2.64 RIGHT: End Diastole cm/sec ----- Right CCA: 12.6 ----- Right ICA: 64.8 ----- Right ECA: 0.0 LEFT: Peak Systolic Velocity (PSV) cm/sec ----- Left CCA: 78.0 ----- Left ICA: appears occluded ----- Left ECA: 174 LEFT: End Diastole cm/sec ----- Left CCA: 0.7 ----- Left ICA: appears occluded ----- Left ECA: 10.9 VERTEBRALS (direction of flow): Right Vertebral: unable to visualize Left Vertebral: unable to visualize INSEAMER NOTES: Moderate plaque right bifurcation. Severe plaque left bifurcation. Increased veloc ities right ICA and bilateral ECA's. Left ICA appears occluded IMPRESSION: * 50-69% of the right carotid bifurcation. * left carotid bifurcation appears occluded this could be confirmed with CTA. Criteria for Assigning % of Stenosis / Diameter reduction (Estimation based on the indirect measurements of the internal carotid artery velocities (ICA PSV). 1. Normal (no stenosis)=ICA PSV < 125 cm/s: ratio < 2.0: ICA EDV<40 cm/s. 2. Less than 50% stenosis=ICA PSV < 125 cm/s: ratio < 2.0: ICA EDV<40 cm/s. 3. 50 to 69% stenosis=ICA PSV of 125 to 230 cm/s: ration 2.0 ? 4.0: ICA EDV 40-100 cm/s. 4. Greater than 70% stenosis to near occlusion= ICA PSV > 230 cm/s: ratio > 4.0: ICA EDV > 100 cm/s. 5. Near occlusion= ICA PSV velocities may be low or undetectable: variable ratio and ICA EDV. 6. Total occlusion=unable to detect flow.
[2022-07-11 19:26] VITALS: BP 164/74; PULSE 103
[2022-07-11] MEDS ORDERED: MONTELUKAST 10 MG TAB PO SCH (21:00)
[2022-07-11] MEDS ORDERED: ATORVASTATIN 40 MG TAB PO ONE (21:00)
--- NOTE | 2022-07-12 15:51 | P.HPIM ---
History of Present Illness H&P Date: 07/11/22 Patient left AMA before being seen Past Medical History Past Medical History: Cancer, COPD, Hyperlipidemia Additional Past Medical History / Comment(s): Skin CA History of Any Multi-Drug Resistant Organisms: None Reported Past Surgical History: Hernia Repair, Orthopedic Surgery Additional Past Surgical History / Comment(s): Ankle surgery; 2 fingertips removed r/t accident Past Anesthesia/Blood Transfusion Reactions: No Reported Reaction Past Psychological History: No Psychological Hx Reported Smoking Status: Current every day smoker Past Alcohol Use History: None Reported Past Drug Use History: Marijuana - Past Family History Mother Family Medical History: No Reported History Medications and Allergies Home Medications Medication Instructions Recorded Confirmed Type Albuterol Inhaler [Ventolin Hfa 2 puff INHALATION RT-Q6H PRN 04/26/18 07/10/22 History Inhaler] Budesonide [Pulmicort] 0.5 mg INHALATION RT-BID 04/26/18 07/10/22 History Tamsulosin HCl [Flomax] 0.4 mg PO BID 04/26/18 07/10/22 History Ipratropium-Albuterol Nebulize 3 ml INHALATION RT-QID PRN 07/10/22 07/10/22 History [Duoneb 0.5 mg-3 mg/3 ml Soln] Montelukast Sodium [Singulair] 10 mg PO HS 07/10/22 07/10/22 History Allergies Allergy/AdvReac Type Severity Reaction Status Date / Time No Known Allergies Allergy Verified 07/10/22 21:41 Physical Exam Vitals: Vital Signs Pulse Pulse BP Pulse Ox 07/11/22 16:08 72 07/11/22 16:00 103 H 164/74 94 L 07/11/22 15:54 74 Results CBC & Chem 7: 07/10/22 17:16 07/10/22 17:16
--- NOTE | 2022-07-12 15:53 | P.DS ---
Providers Date of admission: 07/10/22 20:49 Expected date of discharge: 07/11/22 Attending physician: Isra Mccord Consults: 07/10/22 20:50 Consult Physician Routine Consulting Provider: Leola Brewer Consult Reason/Comments: TIA vs Ischemic strke Do you want consulting provider notified?: Yes 07/11/22 01:12 Consult Physician Routine Consulting Provider: Mk Haney Consult Reason/Comments: Left ICA occlusion Right ICA stenosis Do you want consulting provider notified?: Yes Primary care physician: Isra Mccord [facility] Course: Patient left AMA before being seen. Patient Condition at Discharge: Undetermined Plan - Discharge Summary Discharge Rx Participant: No New Discharge Prescriptions: No Action Budesonide [Pulmicort] 0.5 mg INHALATION RT-BID Albuterol Inhaler [Ventolin Hfa Inhaler] 2 puff INHALATION RT-Q6H PRN PRN Reason: Shortness Of Breath Tamsulosin HCl [Flomax] 0.4 mg PO BID Montelukast Sodium [Singulair] 10 mg PO HS Ipratropium-Albuterol Nebulize [Duoneb 0.5 mg-3 mg/3 ml Soln] 3 ml INHALATION RT-QID PRN PRN Reason: Shortness Of Breath Discharge Medication List Albuterol Inhaler [Ventolin Hfa Inhaler] 2 puff INHALATION RT-Q6H PRN 04/26/18 [History] Budesonide [Pulmicort] 0.5 mg INHALATION RT-BID 04/26/18 [History] Tamsulosin HCl [Flomax] 0.4 mg PO BID 04/26/18 [History] Ipratropium-Albuterol Nebulize [Duoneb 0.5 mg-3 mg/3 ml Soln] 3 ml INHALATION RT-QID PRN 07/10/22 [History] Montelukast Sodium [Singulair] 10 mg PO HS 07/10/22 [History] Follow up Appointment(s)/Referral(s): Isra Mccord DO [Primary Care Provider] - 1-2 days Activity/Diet/Wound Care/Special Instructions: Left AMA before being seen Discharge Disposition: Left Against Medical Advice
[2022-07-12] MEDS ORDERED: ATORVASTATIN 80 MG TAB PO SCH (21:00)
== END 2022-07-11 18:53 | disposition left against medical advice (07) | DRG 68 ==
LOC: EC 17:03 → 3SCARD 20:49
PROVIDERS: ADMIT Family Medicine; ATTEND Family Medicine
DX: I65.23 Occlusion and stenosis of bilateral carotid arteries (principal); J44.1 Chronic obstructive pulmonary disease with (acute) exacerbation; E78.5 Hyperlipidemia, unspecified; I10 Essential (primary) hypertension; R26.0 Ataxic gait; F17.210 Nicotine dependence, cigarettes, uncomplicated; Z71.6 Tobacco abuse counseling; Z79.899 Other long term (current) drug therapy; Z53.21 Procedure and treatment not carried out due to patient leaving prior to being seen by health care provider; Z85.828 Personal history of other malignant neoplasm of skin
CPT/HCPCS: 36415; 70450; 70496; 70498; 70551; 71046; 80053; 80061; 82607; 82746; 82803; 83036; 84484; 85025; 85610; 85730; 93005; 93880; 94640; 94660; 94760; 96361; 96374; 96375; 99291

== ENCOUNTER → 2022-07-25 | Outpatient (CLI) | payer MEDICARE | END | disposition home or self-care (01) | LOC: LABWHC1 15:34 | PROVIDERS: ATTEND Surgery Vascular Surgery | DX: Z01.812 Encounter for preprocedural laboratory examination (principal); Z20.822 Contact with and (suspected) exposure to COVID-19 | CPT/HCPCS: 87635 ==